=== PATIENT | female | born 1990 | race Two or more races ===

== ENCOUNTER 2024-04-01 19:38 | Emergency (ER) | payer OTHER ==
[~2024-04-01] VITALS: Ht 170.2 cm; Wt 58.5 kg
[2024-04-01] MEDS ORDERED: DIPHENHYDRAMINE HCL 50 MG/ML VIAL 1ML IM ONE (20:30)
[2024-04-01] MEDS ORDERED: CEFTRIAXONE SODIUM 1,000 MG VIAL IM ONE (20:30)
[2024-04-01] MEDS ORDERED: KETOROLAC TROMETHAMINE 60 MG VIAL IM ONE ×2 (20:30→21:01)
[2024-04-01] MEDS ORDERED: PEPCID AC20 MG PO (20:32)
[2024-04-01] MEDS ORDERED: CEPHALEXIN750 MG PO (20:32)
[2024-04-01] MEDS ORDERED: DIPHENHYDRAMINE HCL 50 MG/ML VIAL 1ML ONE (21:01)
[2024-04-01] MEDS ORDERED: CEFTRIAXONE SODIUM 1,000 MG VIAL ONE (21:02)
== END 2024-04-01 20:35 | disposition home or self-care (01) ==
LOC: ER 19:40
DX: L02.91 Cutaneous abscess, unspecified (principal); Z88.8 Allergy status to other drugs, medicaments and biological substances; Z91.011 Allergy to milk products; Z91.013 Allergy to seafood